=== PATIENT | female | born 1940 | race Caucasian/White ===

== ENCOUNTER 2017-04-02 15:39 | Emergency (ER) | payer MEDICARE, BC ==
[2017-04-02 18:04] VITALS: BP 136/80
--- NOTE | 2017-04-03 13:50 | CR ---
INDICATION: Shortness of breath. CHEST: PA and lateral views of the chest 04/02/2017, compared with 12/31/2016 and 07/30/2016, revealed the heart to remain enlarged with tortuous calcified aorta and evidence of post median sternotomy change. Prominent diameter of the ascending aorta is again suggested. The left ventricular enlargement is most prominent. Left atrial enlargement is also suggested. Flattened diaphragm leaves are compatible with COPD, as previously. Diminished bone density is noted compatible with osteoporosis. Somewhat heavy markings in the lower lung kirkpatrick are again noted, compatible with pulmonary fibrosis. IMPRESSION: 1. No definite acute process. 2. COPD. 3. Pulmonary fibrosis. 4. ASHD with cardiomegaly and post median sternotomy change. 5. Osteoporosis. MTDD
--- NOTE | 2017-04-20 11:47 | ER ---
DATE SEEN: 04/02/2017 TIME SEEN: The patient was seen at 1545 hours. CHIEF COMPLAINT: Right foot swelling. HISTORY OF PRESENT ILLNESS: This 76-year-old woman with atrial fibrillation, irregular heartbeat, chronic obstructive lung disease, hypertensive heart disease, pulmonary hypertension, esophagitis, CHF, mild dementia, and tobacco abuse, still smoking 35-pack years of smoking, presents with several days' duration of right leg swelling. No history of trauma. No history of fall or increased cardiorespiratory symptoms. She has mild 2/10 pain. PAST SURGICAL HISTORY: Appendectomy, cholecystectomy, EGD, and colonoscopy. OBSTETRICAL HISTORY: Spontaneous AB. SOCIAL HISTORY: She smokes a half a pack of cigarettes per day. . ALLERGIES: None. CURRENT MEDICATIONS: 1. Tramadol t.i.d. 2. Warfarin 5 mg Monday, Monday, Monday, , Monday and 2.5 mg Monday and Monday. 3. Spiriva HandiHaler (tiotropium 18 mcg daily). 4. Simvastatin 40 mg daily. 5. Potassium chloride 20 mEq b.i.d. 6. Prozac 20 mg at bedtime. 7. Diltiazem 240 mg daily. 8. Albuterol 2 puffs p.r.n. 9. Tylenol plain 1000 mg q.i.d. for pain. IMMUNIZATIONS: Pneumococcal up-to-date. Influenza is up-to-date. REVIEW OF SYSTEMS: RESPIRATORY: Mild shortness of breath. Increased dyspnea on exertion walking 20 feet. COPD. EXTREMITIES: No increased swelling in her legs, except for the right leg. No increased swelling in the left leg. CARDIORESPIRATORY: Denies chest pain, but she has irregularly regular heartbeat for which she takes diltiazem and anticoagulant - atrial fibrillation. : Denies frequency, urgency, or dysuria. GI: GERD. Denies constipation, difficulty passing stools or blood in the stool or black tarry stools. MUSCULOSKELETAL: Mild decreased strength. Arthritis. PSYCH: Depression. PHYSICAL EXAMINATION: VITAL SIGNS: Blood pressure 131/83, heart rate 62 and irregularly regular, respirations 20, oxygen saturation 98% on room air. Weight is 56.69 kilos. BMI 21.5 kilos. GENERAL: This asthenic woman has mild shortness of breath, has expiratory wheeze noted. She is concerned about her right foot. She is in mild distress. HEENT: PERRLA intact. Hearing is slightly decreased. Pharynx without abnormality. HEART: S1 and S2. There is an irregular heartbeat and an occasional S3. No murmur noted. Valve closure, presumably aortic valve closure noted. Sternotomy incision of the chest noted. No pacemaker noted. ABDOMEN: Soft. No guarding. No abdominal discomfort. Bowel sounds present. No distention. No CVA percussion tenderness. EXTREMITIES: Mild pedal edema of the left lower extremity, more swelling to right lower extremity. Dorsalis pedis intact. Color intact. 1+ pedal edema, right greater than left. No evidence for compromise of pulses, right lower extremity. No popliteal pain. There is mild discomfort in the right lower extremity. EKG: Heart rate 96. Irregularly irregular rhythm. No ST elevation or ST depression. Left ventricular hypertrophy considered as she has a 22-mm R-wave in V5 and 20 mm in V6. Inversion of T-wave in aVL, otherwise T-waves are normal in appearance. Chest x-ray: COPD with hyperaeration, no infiltrate. Mild cardiomegaly. LABORATORY DATA: White count 8800, PMNs 73, lymphs 16, monos 9, hemoglobin 14.5, platelets 250,000. D-dimer elevated at 608 (in terms of rules of 10 this is not considered abnormal and it could be elevated on the basis of her age, not considered abnormal.) ABG: Baseline. 7.43 pH, pCO2 of 34, pO2 of 58, bicarb 22, oxygen saturation 91%. Complete metabolic panel: Normal. Sodium 137, potassium 4.4, chloride 105, bicarb 24, BUN 10, creatinine 0.9. GFR greater than 60. Alkaline phosphatase elevated at 121. Troponin 0.01, normal. BNP is 165. Urinalysis: Negative. ASSESSMENT: 1. Right lower extremity swelling, etiology indeterminate. She has adequate anticoagulation. She is on Coumadin. No suggestion of deep venous thrombosis. Etiology for swelling indeterminate. 2. Congestive heart failure, stable. Present BNP is normal. 3. Atrial fibrillation, low controlled rate. 4. Chronic obstructive pulmonary disease with still persistent smoking. 5. No evidence for acidosis or respiratory acidosis. 6. Compensatory tachypnea resulting in a non-elevated CO2. O2 is mildly low. Mild persistent chronic obstructive pulmonary disease without hypoxia. No evidence for infection. PLAN: The patient to follow up with her doctor in a week. I advised that the probability to have a blood clot in her leg is low because she is on Coumadin. Also advised that she needs to stop smoking, use nicotine patch and nicotine tic tacs (lozenges as directed). Prescription given for both. Baseline ABGs will be obtained, should she have further progression of her symptoms. /[id number] [address]
== END 2017-04-02 17:55 | disposition home or self-care (01) ==
LOC: FB.ED 15:39
DX: M79.89 Other specified soft tissue disorders (principal); I48.91 Unspecified atrial fibrillation; Z79.01 Long term (current) use of anticoagulants; I50.9 Heart failure, unspecified; J44.9 Chronic obstructive pulmonary disease, unspecified; F17.210 Nicotine dependence, cigarettes, uncomplicated; R06.82 Tachypnea, not elsewhere classified; Z79.899 Other long term (current) drug therapy; I51.7 Cardiomegaly; J84.10 Pulmonary fibrosis, unspecified; I25.10 Atherosclerotic heart disease of native coronary artery without angina pectoris; M81.0 Age-related osteoporosis without current pathological fracture
CPT/HCPCS: 36415; 36600; 71020; 80053; 81001; 82803; 83880; 84484; 85025; 85379; 93005; 99284

== ENCOUNTER 2017-09-21 19:05 | Emergency (ER) | payer MEDICARE ==
[2017-09-21] MEDS ORDERED: Morphine 4 MG/ML Syringe IVPUSH ONE (19:53)
[2017-09-21 20:37] VITALS: BP 155/112
--- NOTE | 2017-09-21 21:48 | ER ---
DATE SEEN: 09/21/2017 TIME SEEN: 1945 hours. CHIEF COMPLAINT: Fall. HISTORY OF PRESENT ILLNESS: This is a 76-year-old female who fell at home 3 hours ago, minor accident. Complains of pain in the right hip with movement and weightbearing. PAST MEDICAL HISTORY: COPD, atrial fibrillation, pneumonia, tobacco abuse, hypertension. REVIEW OF SYSTEMS: Negative for any other trauma. MEDICATIONS: Reviewed. PHYSICAL EXAMINATION: GENERAL: Not in any cardiopulmonary distress. VITAL SIGNS: Blood pressure is normal. She is afebrile. Heart rate is in the 130s. EARS, NOSE, AND THROAT: Negative. MUSCULOSKELETAL: Revealed tenderness to the right hip, but normal peripheral pulses. DIAGNOSTIC DATA: X-ray, subcapital fracture of the right hip was noted. IMPRESSION: Right hip fracture. PLAN: I called [facility], we will send the patient over to the hospital for admission and possible ORIF. I gave her 4 mg of morphine IV and will send her by ambulance. /[id number] [address]
[2017-09-21] MEDS ORDERED: Sodium Chloride 0.9% 10 ML Syringe FLUSH PRN (22:36)
--- NOTE | 2017-09-22 13:31 | CR ---
INDICATION: Fall, injury, pain. RIGHT HIP WITH PELVIS: Four views of the right hip and pelvis were obtained . No comparison study was available. Diminished bone density is suggested, compatible with osteoporosis, but should be correlated clinically. Extensive arterial calcifications are noted in the iliac and femoral arteries. Hypertrophic degenerative changes are noted at the right hip joint with both hip joint spaces fairly well maintained. Only minimal hypertrophic change is seen at the left hip joint. A definite acute fracture or dislocation was not identified. If an occult fracture site is suspected clinically, CT or re-examination may be helpful. IMPRESSION: 1. Osteoarthritis. 2. No acute fracture or dislocation. 3. Probable osteoporosis. MTDD
== END 2017-09-21 21:25 ==
LOC: FB.ED 19:05
DX: S72.011A Unspecified intracapsular fracture of right femur, initial encounter for closed fracture (principal); W19.XXXA Unspecified fall, initial encounter
CPT/HCPCS: 73502; 96374; 99285; J2270; 99284